=== PATIENT | male | born 1975 | race Caucasian/White ===

== ENCOUNTER 2018-04-22 17:50 | Inpatient (IN) | payer OTHER ==
[~2018-04-22] VITALS: Ht 188 cm; Wt 108.0 kg
[2018-04-22] MEDS ORDERED: METOPROLOL SUCC25 MG (17:57)
[2018-04-22] MEDS ORDERED: AMIODARONE H50 MG/M1 (17:57)
[2018-04-22] MEDS ORDERED: COUMADIN2 MG (17:58)
[2018-04-27] MEDS ORDERED: AMIODARONE HCL200 MG PO (17:52)
[2018-04-27] MEDS ORDERED: COUMADIN4 MG PO (17:52)
[2018-04-27] MEDS ORDERED: TOPROL XL100 M1 PO (17:52)
[2018-04-27] MEDS ORDERED: OSEL75CA PO (18:24)
== END 2018-04-27 19:08 | DRG 292 ==
LOC: ER 17:50 → SEC-K 04-23 10:22 → MEDJ 04-23 10:33
PROVIDERS: ADMIT Internal Medicine
PROC: 4A12X4Z Monitoring of Cardiac Electrical Activity, External Approach (ICD-10-PCS; principal; 2018-04-23)
PROC: B246ZZZ Ultrasonography of Right and Left Heart (ICD-10-PCS; 2018-04-23)
PROC: BW40ZZZ Ultrasonography of Abdomen (ICD-10-PCS; 2018-04-24)
PROC: B246ZZ4 Ultrasonography of Right and Left Heart, Transesophageal (ICD-10-PCS; 2018-04-26)
DX: I50.20 Unspecified systolic (congestive) heart failure (principal); I43 Cardiomyopathy in diseases classified elsewhere; I48.0 Paroxysmal atrial fibrillation; I11.0 Hypertensive heart disease with heart failure